=== PATIENT | male | born 1990 | race Two or more races ===

== ENCOUNTER 2021-11-18 12:41 | Outpatient (CLI) | payer BC ==
--- NOTE | 2021-11-18 18:12 | Ultrasound Report ---
PROCEDURE: Chest INDICATIONS: LIPOMA L BACK TECHNIQUE: Real-time scanning was performed, with image documentation. Color Doppler ultrasound was also utilize d. COMPARISON: None. FINDINGS: Scanning is performed at the area of clinical concern involving the left mid back posteriorly. Within this region, there is an ovoid hypoechoic lesion seen that measures 4.9 x 0.9 x 5.9 cm. It demonstra karla a similar echotexture to the surrounding normal subcutaneous fat. No abnormal vascularity is seen . IMPRESSION: Lipoma seen at the area of clinical concern. Reviewed by: Prince Kearns MD on 11/18/2021 5:10 PM [place] Approved by: Prince Kearns MD on 11/18/2021 5:10 PM [facility] Station ID: [id number]
== END 2021-11-18 12:42 | disposition home or self-care (01) ==
LOC: DI 12:41
PROVIDERS: ATTEND Physician Assistant
DX: D17.9 Benign lipomatous neoplasm, unspecified (principal)